=== PATIENT | female | born 1940 | race Asian ===

== ENCOUNTER 2017-10-01 16:48 | Emergency (ER) | payer MEDICARE, OTHER ==
[~2017-10-01] VITALS: Ht 160 cm; Wt 68.0 kg
--- NOTE | 2017-10-01 16:57 | Emergency Room Report ---
History of Present Illness General Chief Complaint: Upper Extremity Injury Source: Patient Present Illness HPI Patient is an 77-year-old female who presented after having right upper extremity pain after a fall the patient reportedly fell from an escalator while trying to get on. The patient reported having pain to her right upper extremity. Injury occurred just prior to arrival. Patient was brought in by EMS. Patient predominantly Italian speaking Allergies: Coded Allergies: No Known Allergies (Unverified , 10/01/17) Patient History Reviewed Nursing Documentation: PMH: Agreed, PSxH: Agreed Nursing Documentation-PMH Past Medical History: No History, Except For Hx Hypertension: Yes Hx Diabetes: Yes Review of Systems All Other Systems: negative except mentioned in HPI Physical Exam Vital Signs Date Time Temp Pulse Resp B/P (MAP) Pulse Ox O2 Delivery O2 Flow Rate FiO2 10/01/17 16:42 98.4 91 20 152/76 97 Room Air Sp02 EP Interpretation: reviewed, normal General Appearance: normal inspection, alert, no apparent distress, GCS 15 Head: normocephalic, atraumatic Eyes: normal eye exam, PERRL, EOMI, lids + conjunctiva normal, no hyphema, no racoon eyes ENT: normal ENT inspection, TMs + canals normal, oropharynx normal, no marrero signs Neck: trach midline, no bony tend, full range of motion without pain Respiratory: effort normal, no retractions, clear to auscultation, chest symmetrical, palpation of chest normal, speaking in full sentences Cardiovascular: regular rate, rhythm, no JVD Cardiovascular #2: 2+ radial (R), 2+ radial (L), 2+ dorsalis pedis (R), 2+ dorsalis pedis (L) Gastrointestinal: normal inspection, non-tender, non-distended, no rebound/ guarding, normal bowel sounds Genitourinary: normal inspection Musculoskeletal: back normal, other - defomity to right upper extremity near elbow Skin: no rash, no lacerations, normal palpation Lymphatic: normal inspection Neurologic: normal inspection, CN II-XII intact, oriented x3, sensory intact, motor strength/tone normal, normal speech Psychiatric: normal inspection, memory normal, mood normal, no suicidal/ homicidal ideation Procedures Joint Reduction Joint Reduction : Consent: Emergent Joint Reduction Site: other Procedural Sedation: No Pre-Procedure NV Exam: Yes Post-Procedure NV Exam: Yes Post Joint Reduction Film: joint reduced Patient Tolerated: Well Complications: None Progress neurovascularly intact after reduction, able to move hand normally, extend wrist , move thumb. Medical Decision Making Diagnostic Impression: Primary Impression: Elbow dislocation Additional Impression: Abrasion of right foot ER Course Patient presented for right arm pain. Differential diagnosis included but was not limited to fracture, contusion, vascular insufficiency, cellulitis, nerve injury among other.Because of complexity of patient's case laboratory testing and imaging studies were ordered.Laboratory testing showed elevation of BUN/ creatinine consistent mild dehydration. The patient was given IV morphine for pain. Patient was subsequently noted to have adequate pain control. The joint was reduced with axial traction easily. Post procedure x-ray showed avulsion fractures olecranon. The patient was placed in posterior splint. She was neurovascularly intact after splinting. Patient was advised followup with her primary care DrLindsey for orthopedic referral. She was given prescription for tramadol as well as acetaminophen Labs Test 10/01/17 17:08 White Blood Count 10.9 K/UL (4.8-10.8) Red Blood Count 3.68 M/UL (4.20-5.40) Hemoglobin 11.4 G/DL (12.0-16.0) Hematocrit 35.7 % (37.0-47.0) Mean Corpuscular Volume 97 FL (80-99) Mean Corpuscular Hemoglobin 31.1 PG (27.0-31.0) Mean Corpuscular Hemoglobin Concent 32.0 G/DL (32.0-36.0) Red Cell Distribution Width 11.7 % (11.6-14.8) Platelet Count 125 K/UL (150-450) Mean Platelet Volume 7.9 FL (6.5-10.1) Neutrophils (%) (Auto) 43.8 % (45.0-75.0) Lymphocytes (%) (Auto) 44.3 % (20.0-45.0) Monocytes (%) (Auto) 8.4 % (1.0-10.0) Eosinophils (%) (Auto) 2.7 % (0.0-3.0) Basophils (%) (Auto) 0.7 % (0.0-2.0) Prothrombin Time 10.1 SEC (9.30-11.50) Prothromb Time International Ratio 1.0 (0.9-1.1) Activated Partial Thromboplast Time 24 SEC (23-33) Sodium Level 139 MMOL/L (136-145) Potassium Level 3.8 MMOL/L (3.5-5.1) Chloride Level 102 MMOL/L (98-107) Carbon Dioxide Level 27 MMOL/L (21-32) Anion Gap 10 mmol/L (5-15) Blood Urea Nitrogen 36 mg/dL (7-18) Creatinine 1.4 MG/DL (0.55-1.30) Estimat Glomerular Filtration Rate mL/min (>60) Glucose Level 267 MG/DL (74-106) Calcium Level 9.4 MG/DL (8.5-10.1) Total Bilirubin 0.8 MG/DL (0.2-1.0) Aspartate Amino Transf (AST/SGOT) 34 U/L (15-37) Alanine Aminotransferase (ALT/SGPT) 46 U/L (12-78) Alkaline Phosphatase 50 U/L (46-116) Total Protein 7.4 G/DL (6.4-8.2) Albumin 3.9 G/DL (3.4-5.0) Globulin 3.5 g/dL Albumin/Globulin Ratio 1.1 (1.0-2.7) Last Vital Signs Date Time Temp Pulse Resp B/P (MAP) Pulse Ox O2 Delivery O2 Flow Rate FiO2 10/01/17 16:42 98.4 91 20 152/76 97 Room Air Status: improved Disposition: HOME, SELF-CARE Condition: Stable Scripts Acetaminophen (ACETAMINOPHEN) 500 Mg Capsule 500 MG PO EVERY 4 HOURS for For Pain, #60 CAP Prov: Hu Ray 10/01/17 Tramadol Hcl* (ULTRAM*) 50 Mg Tablet 50 MG ORAL Q6H Y for For Pain, #20 TAB 0 Refills Prov: Hu Ray 10/01/17 Hu Ray Oct 01, 2017 16:57
[2017-10-01] MEDS ORDERED: Morphine Sulfate 2mg/ml Inj IVP ONE (17:00)
[2017-10-01 17:26] VITALS: BP 152/76
[2017-10-01 17:32] LABS: PROTHROMBIN TIME 10.1 SEC (9.30-11.50)
[2017-10-01 17:34] LABS: ANION GAP 10 mmol/L (5-15); BASOPHILS % (AUTO) 0.7 % (0.0-2.0); CALCIUM 9.4 MG/DL (8.5-10.1); CARBON DIOXIDE 27 MMOL/L (21-32); CHLORIDE 102 MMOL/L (98-107); CREATININE 1.4 MG/DL (0.55-1.30); EOSINOPHILS % (AUTO) 2.7 % (0.0-3.0); LYMPHOCYTES % (AUTO) 44.3 % (20.0-45.0); MEAN CORPUSCULAR HEMOGLOBIN 31.1 PG (27.0-31.0); MEAN CORPUSCULAR VOLUME 97 FL (80-99); MEAN PLATELET VOLUME 7.9 FL (6.5-10.1); MONOCYTES % (AUTO) 8.4 % (1.0-10.0); NEUTROPHILS % (AUTO) 43.8 % (45.0-75.0); PLATELET COUNT 125 K/UL (150-450); POTASSIUM 3.8 MMOL/L (3.5-5.1); RED BLOOD COUNT 3.68 M/UL (4.20-5.40); RED CELL DISTRIBUTION WIDTH 11.7 % (11.6-14.8); SODIUM 139 MMOL/L (136-145); WHITE BLOOD COUNT 10.9 K/UL (4.8-10.8)
[2017-10-01 17:39] LABS: ALANINE AMINOTRANSFERASE 46 U/L (12-78); ALBUMIN/GLOBULIN RATIO 1.1 (1.0-2.7); ASPARTATE AMINO TRANSFERASE 34 U/L (15-37); TOTAL PROTEIN 7.4 G/DL (6.4-8.2)
[2017-10-01] MEDS ORDERED: DIOVAN80 MG ORAL (17:40)
[2017-10-01] MEDS ORDERED: ATORVASTATIN CA20 MG ORAL (17:42)
[2017-10-01] MEDS ORDERED: NORVASC5 MG ORAL (17:42)
[2017-10-01] MEDS ORDERED: LIPITOR80 MG ORAL (17:42)
[2017-10-01] MEDS ORDERED: JANUVIA100 MG ORAL (17:43)
[2017-10-01 17:46] VITALS: BP 124/78
[2017-10-01] MEDS ORDERED: ACETAMINOPHEN500 M7 PO (18:47)
[2017-10-01] MEDS ORDERED: TRAMADOL HCL50 MG ORAL (18:47)
[2017-10-01] MEDS ORDERED: Bacitracin Oint UD TOPIC ONE (19:00)
[2017-10-01] MEDS ORDERED: Tetanus/Diptheria/Pertussis Vaccine 0.5ml Syr IM ONE (19:00)
[2017-10-01 19:18] VITALS: BP 124/78
--- NOTE | 2017-10-02 10:35 | Diagnostic Imaging Report ---
Indication: Right elbow pain Technique: XRAY ELBOW 2 VIEWS RIGHT Comparison: Examination from earlier the same day at 1706 hrs. Findings: There has been interval reduction of the previously noted dislocation. Small ossific densities are noted adjacent to the medial and lateral humeral epicondyles. A linear radiopaque foreign body of the soft tissues is unchanged. Impression: Interval reduction of previously noted elbow dislocation. Acuity indeterminate possibly nonacute ossific densities adjacent to the humerus.
--- NOTE | 2017-10-02 10:38 | Diagnostic Imaging Report ---
Indication: Right arm pain Technique: Right humerus 2 views Comparison: None Findings: There is a dislocation of the elbow. Linear foreign body of the soft tissues is present. Impression: Elbow dislocation.
--- NOTE | 2017-10-03 15:33 | Cardiology Report ---
APPROVED REPORT EKG Measurement Heart [id number] Normal sinus rhythm Normal ECG
== END 2017-10-01 19:20 | disposition home or self-care (01) ==
LOC: EDBD 16:48 → EMR 18:33
DX: S53.104A Unspecified dislocation of right ulnohumeral joint, initial encounter (principal); S90.811A Abrasion, right foot, initial encounter; W10.0XXA Fall (on)(from) escalator, initial encounter; Y92.89 Other specified places as the place of occurrence of the external cause; Z23 Encounter for immunization; I10 Essential (primary) hypertension; E11.9 Type 2 diabetes mellitus without complications
CPT/HCPCS: 24605; 73060; 73070; 80053; 85025; 85610; 85730; 90471; 90715; 93005; 96374; 99284; J2270